=== PATIENT | male | born 1940 | race Caucasian/White ===

== ENCOUNTER 2017-12-27 08:52 | Emergency (ER) | payer MEDICARE, MEDICAID ==
[~2017-12-27] VITALS: Ht 172.7 cm; Wt 73.9 kg
[2017-12-27 09:10] VITALS: BP 110/69
--- NOTE | 2017-12-27 11:15 | Diagnostic Imaging Report ---
Indication: Trauma, pain Technique: spiral acquisitions obtained through the brain. Angled axial and coronal 5 x 5 mm slices were reconstructed. No IV contrast utilized. Radiation dose was minimized using automated exposure control Total dose length product 1330.34 mGycm. CTDIvol(s) 70.38 mGy Comparison: none FINDINGS: No acute hemorrhage or edema. No mass effect or midline shift. There is mild age-related enlargement of the ventricles and extra axial CSF spaces. There is periventricular deep white matter ischemic change. One or more small lacunar infarcts are seen in the right basal ganglia region. Normal hand-white differentiation. Visualized orbits are unremarkable. Visualized sinuses are unremarkable. Intact calvarium. IMPRESSION: Chronic and age-related changes. Negative for acute intracranial bleed or mass effect Old right basal ganglia lacunar infarcts The CT scanner at [facility] is accredited by the [employer] and the scans are performed using protocols designed to limit radiation exposure to as low as reasonably achievable to attain images of sufficient resolution adequate for diagnostic evaluation
--- NOTE | 2017-12-27 11:34 | Diagnostic Imaging Report ---
Indication: Pain, status post fall Technique: 2 views of the right hip Comparison: none Findings: No acute fractures. No dislocations. There are mild proliferative changes of the acetabulum. The joint spaces are preserved. There are degenerative changes of the lumbosacral junction. There are fairly extensive vascular calcifications. Surgical clips are seen in the left groin and thigh Impression: No acute bony trauma
--- NOTE | 2017-12-27 11:39 | Diagnostic Imaging Report ---
Indication: Trauma, pain Technique: 3 views of the right knee Comparison: None Findings: There is severe degenerative narrowing of the patellofemoral joint compartment. No acute fractures. No dislocations. Ossific density projecting cephalad to the lateral epicondyle may reflect some heterotopic ossification or an intra-articular loose body. One or more intra-articular loose bodies project posterior to the femur on the lateral view. Ossified fabella also noted. There are medial lateral meniscal calcifications. Impression: No acute bony trauma Degenerative changes, as described Suspect intra-articular loose bodies Meniscal chondrocalcinosis
--- NOTE | 2017-12-27 12:06 | Emergency Room Report ---
History of Present Illness General Chief Complaint: Multiple Trauma/Fall Source: Patient Present Illness HPI This patient states that yesterday he was getting out of his car in a parking lot and there is an embankment that he did not see. He states he tripped over it and fell backwards. He denies head injury. He denies headache or neck pain. He denies chest pain or shortness of breath. He denies abdominal pain. He complains of pain in his right knee that is worse with weightbearing. He also has a small amount of pain in his right hip. He has no other complaints. Allergies: Coded Allergies: No Known Allergies (Unverified , 12/27/17) Patient History Past Medical History: see triage record, DM, HTN, CAD Social History: Denies: smoking, alcohol use, drug use Reviewed Nursing Documentation: PMH: Agreed; PSxH: Agreed Nursing Documentation-PMH Past Medical History: No History, Except For Hx Cardiac Problems: Yes - cabg Hx Diabetes: Yes Hx Cancer: Yes - left kidney Review of Systems All Other Systems: negative except mentioned in HPI Physical Exam Vital Signs Date Time Temp Pulse Resp B/P (MAP) Pulse Ox O2 Delivery O2 Flow Rate FiO2 12/27/17 09:00 98.6 56 18 110/69 93 Room Air 98.6 Sp02 EP Interpretation: reviewed, normal General Appearance: no apparent distress, alert, GCS 15, non-toxic Head: normocephalic, atraumatic Eyes: right eye other - R. pupil 1mm, L. pupil 2mm. Round and reactive.; bilateral eye normal inspection ENT: hearing grossly normal, normal pharynx, no angioedema, normal voice Neck: full range of motion, supple/symm/no masses Respiratory: chest non-tender, lungs clear, normal breath sounds, no respiratory distress, no retraction, no accessory muscle use, speaking full sentences Cardiovascular #1: regular rate, rhythm, no edema Gastrointestinal: normal bowel sounds, non tender, soft, non-distended, no guarding, no rebound Rectal: deferred Musculoskeletal: back normal, swelling - R. knee swollen w/joint effusion, + pain w/ROM., tender - +pain w/ ROM of R. knee. Neurologic: alert, oriented x3, responsive, motor strength/tone normal, sensory intact, speech normal Psychiatric: judgement/insight normal, memory normal, mood/affect normal, no suicidal/homicidal ideation Skin: normal color, no rash, warm/dry, well hydrated Medical Decision Making Diagnostic Impression: Primary Impression: Right knee sprain ER Course The patient has a joint effusion on physical exam. The knee x-ray is negative for fracture. I obtained an x-ray of the right hip which was unremarkable. I also obtained a head CT because the patient's pupils were unequal but there were no acute findings. There were findings consistent with old basilar infarcts. I did place the patient in a knee immobilizer and gave him a cane. The patient refused all labs. He states that this was a trip and fall and he does not want a blood draw. Last Vital Signs Date Time Temp Pulse Resp B/P (MAP) Pulse Ox O2 Delivery O2 Flow Rate FiO2 12/27/17 09:10 98.6 18 110/69 93 Room Air 98.6 12/27/17 09:00 56 Status: improved Disposition: HOME, SELF-CARE Condition: Improved Referrals: NOT CHOSEN IPA/,REFERRING (PCP) Gabby Smiley DO Dec 27, 2017 12:06
[2017-12-27] MEDS ORDERED: IBUPROFEN600 MG ORAL (12:18)
[2017-12-27] MEDS ORDERED: ACETAMINOPHEN500 M3 ORAL (12:18)
[2017-12-27 13:30] VITALS: BP 110/69
== END 2017-12-27 13:30 | disposition home or self-care (01) ==
LOC: EMR 10:34
DX: S83.91XA Sprain of unspecified site of right knee, initial encounter (principal); W01.0XXA Fall on same level from slipping, tripping and stumbling without subsequent striking against object, initial encounter; Y93.9 Activity, unspecified; Y92.9 Unspecified place or not applicable; E11.9 Type 2 diabetes mellitus without complications; Z95.1 Presence of aortocoronary bypass graft; Z85.528 Personal history of other malignant neoplasm of kidney
CPT/HCPCS: 70450; 73502; 99284